=== PATIENT | female | born 1955 | race Caucasian/White ===

== ENCOUNTER 2017-05-06 13:49 | Outpatient (CLI) | payer BC ==
--- NOTE | 2017-05-06 14:53 | MMO ---
BILATERAL SCREENING MAMMOGRAM: Comparison: Prior mammograms dating back to 12-03-11. FINDINGS: This study is interpreted with the assistance of computer aided detection. There are scattered fibroglandular elements bilaterally. There is a mass which has developed within t he right breast, located deep and inner on the CC view and less distinct, although likely within the upper aspect of the right breast on the MLO projection. There is a stable asymmetric density of the d eep upper left breast. IMPRESSION: BIRADS 0 - incomplete. Additional imaging evaluation is warranted. Recommend diagnostic right mammogr am as well as right breast ultrasound, if necessary, to further evaluate mass of the upper inner righ t breast. POS: [facility]
== END 2017-05-06 13:50 | disposition home or self-care (01) ==
LOC: SCSMAMMO 13:49
PROVIDERS: ATTEND Obstetrics & Gynecology
DX: Z12.31 Encounter for screening mammogram for malignant neoplasm of breast (principal)
CPT/HCPCS: 77067

== ENCOUNTER 2017-05-20 14:24 | Outpatient (CLI) | payer BC | END 2017-05-20 14:25 | disposition home or self-care (01) | LOC: BICMAMMO 14:24 | PROVIDERS: ATTEND Obstetrics & Gynecology | DX: R92.8 Other abnormal and inconclusive findings on diagnostic imaging of breast (principal); Z85.89 Personal history of malignant neoplasm of other organs and systems | CPT/HCPCS: G0279 ==

== ENCOUNTER 2018-05-21 12:48 | Outpatient (CLI) | payer BC ==
--- NOTE | 2018-05-21 14:39 | BD ---
BONE DENSITOMETRY USING DEXA: Date: 05/21/18 HISTORY: Postmenopausal screening for osteoporosis. FINDINGS: Lumbar Spine: BMD (g/cm2) L1 1.150 T-Score: 1.5 Z-Score: 2.9 L2 1.272 T-Score: 2.2 Z-Score: 3.9 L3 1.492 T-Score: 3.7 Z-Score: 5.4 L4 1.521 T-Score: 4.2 Z-Score: 6.0 L1-L4 1.371 T-Score: 2.9 Z-Score: 4.6 Femoral Neck: 0.998 T-Score: 1.3 Z-Score: 2.8 Total Femur: 1.246 T-Score: 2.5 Z-Score: 3.6 There has been interval improvement of 7.2% in the bone mineral density of the lumbar spine and an im provement of 7.7% in the bone mineral density of the proximal femur since the exam of 12/15/12. IMPRESSION: No evidence of osteopenia/osteoporosis. Normal bone mineral density. POS: [facility]
== END 2018-05-21 12:49 | disposition home or self-care (01) ==
LOC: BICMAMMO 12:48
PROVIDERS: ATTEND Obstetrics & Gynecology
DX: Z12.31 Encounter for screening mammogram for malignant neoplasm of breast (principal); Z13.820 Encounter for screening for osteoporosis; Z85.89 Personal history of malignant neoplasm of other organs and systems
CPT/HCPCS: 77063; 77067; 77080